=== PATIENT | female | born 1965 | race Caucasian/White ===

== ENCOUNTER 2018-02-26 14:41 | Emergency (ER) | payer OTHER ==
[~2018-02-26] VITALS: Ht 165.1 cm; Wt 63.5 kg
[~2018-02-26 14:41] MED LIST: BACTROBAN OINT22 GM TP; IBUPROFEN800 MG PO; SEPTRA DS TABLE1 TAB PO
[2018-02-26] MEDS ORDERED: TUSSI PRES-B L120 M1 PO (19:30)
[2018-02-26] MEDS ORDERED: ZITHROMAX TRI-500 MG PO (19:30)
[2018-02-26] MEDS ORDERED: MEDROLPACK PO (19:30)
== END 2018-02-26 19:51 | disposition home or self-care (01) ==
LOC: ER 14:41
DX: B34.9 Viral infection, unspecified (principal)

== ENCOUNTER 2019-06-19 10:54 | Emergency (ER) | payer OTHER ==
[~2019-06-19] VITALS: Ht 167.6 cm; Wt 63.5 kg
[~2019-06-19 10:54] MED LIST changes: +MEDROLPACK PO; +TUSSI PRES-B L120 M1 PO; +ZITHROMAX TRI-500 MG PO
[2019-06-19] MEDS ORDERED: HYZAAR 50-12.51 EACH PO (13:20)
[2019-06-19] MEDS ORDERED: MAXITROL EYE DRO5 ML OP (13:20)
== END 2019-06-19 13:34 | disposition home or self-care (01) ==
LOC: ER 10:54
DX: H10.11 Acute atopic conjunctivitis, right eye (principal); I10 Essential (primary) hypertension

== ENCOUNTER 2021-09-23 21:21 | Emergency (ER) | payer OTHER ==
[~2021-09-23] VITALS: Ht 165.1 cm; Wt 63.5 kg
[~2021-09-23 21:21] MED LIST changes: +HYZAAR 50-12.51 EACH PO; +MAXITROL EYE DRO5 ML OP
[2021-09-23] MEDS ORDERED: NIACOR500 MG (21:53)
[2021-09-23] MEDS ORDERED: OMEGA 3 1,0001 EACH (21:53)
== END 2021-09-23 22:55 | disposition home or self-care (01) ==
LOC: ER 21:21
DX: T78.49XA Other allergy, initial encounter (principal); X58.XXXA Exposure to other specified factors, initial encounter

== ENCOUNTER 2023-04-27 09:24 | Emergency (ER) | payer OTHER ==
[~2023-04-27] VITALS: Ht 167.6 cm; Wt 63.5 kg
[~2023-04-27 09:24] MED LIST changes: +NIACOR500 MG; +OMEGA 3 1,0001 EACH
== END 2023-04-27 14:32 | disposition home or self-care (01) ==
LOC: ER 09:24
DX: J06.9 Acute upper respiratory infection, unspecified (principal); Z20.822 Contact with and (suspected) exposure to COVID-19; Z88.8 Allergy status to other drugs, medicaments and biological substances

== ENCOUNTER 2023-05-26 15:45 | Outpatient (CLI) | payer OTHER | END 2023-05-26 16:15 | disposition home or self-care (01) | LOC: RAD 15:45 | DX: J18.9 Pneumonia, unspecified organism (principal) ==

== ENCOUNTER → 2023-09-08 | Outpatient (CLI) | payer OTHER | END | disposition home or self-care (01) | LOC: SONOGRAMA 11:00 | PROVIDERS: ATTEND Otolaryngology | DX: R22.1 Localized swelling, mass and lump, neck (principal) ==

== ENCOUNTER 2023-11-01 08:23 | Outpatient (CLI) | payer OTHER | END 2023-11-01 08:28 | disposition home or self-care (01) | LOC: SONOGRAMA 08:23 | PROVIDERS: ATTEND Pathology Anatomic Pathology | DX: D37.030 Neoplasm of uncertain behavior of the parotid salivary glands (principal) ==